=== PATIENT | female | born 1960 | race Caucasian/White ===

== ENCOUNTER 2016-10-14 00:30 | Emergency (ER) | payer MEDICAID ==
[2016-10-14 03:30] VITALS: BP 132/78
== END 2016-10-14 03:30 | disposition home or self-care (01) ==
LOC: ED 00:30
DX: K59.00 Constipation, unspecified (principal)

== ENCOUNTER 2019-02-08 12:08 | Emergency (ER) | payer MEDICAID ==
[~2019-02-08] VITALS: Ht 175.3 cm; Wt 52.6 kg
[2019-02-08 12:41] VITALS: Ht 175.3 cm; Wt 52.6 kg
[2019-02-08 16:00] LABS: BASOPHIL % 0.3 % (0-2); PLATELET COUNT 228 x10^3mcL (130-400); RED CELL DISTRIBUTION WIDTH 13.6 % (11.5-14.5)
[2019-02-08 16:04] LABS: CALCIUM 9.3 mg/dL (8.5-10.1); CARBON DIOXIDE 30.1 mmol/L (21-32); CHLORIDE SERUM 104 mmol/L (98-107); CREATININE SERUM 0.7 mg/dL (0.6-1.0); GFR1 > 60 mL/min; GLUCOSE SERUM 93 mg/dL (74-106); POTASSIUM SERUM 4.7 mmol/L (3.5-5.1); SODIUM SERUM 142 mmol/L (136-145)
[2019-02-08 16:08] LABS: ALBUMIN 3.9 g/dL (3.4-5.0); ALKALINE PHOSPHATASE 85 U/L (46-116); ALT/SGPT 42 U/L (14-59); AST/SGOT 31 U/L (15-37); BILIRUBIN TOTAL 0.4 mg/dL (0.20-1.00); TOTAL PROTEIN, SERUM 7.4 g/dL (6.4-8.2)
[2019-02-08 16:42] VITALS: BP 114/85
[2019-02-08 17:32] LABS: ERYTHROCYTE SED RATE 14 mm/hr (0-30)
== END 2019-02-08 16:42 | disposition home or self-care (01) ==
LOC: ED 12:08
PROVIDERS: Emergency Medicine
DX: S91.331D Puncture wound without foreign body, right foot, subsequent encounter (principal); L03.115 Cellulitis of right lower limb; W55.01XD Bitten by cat, subsequent encounter
CPT/HCPCS: 36415; J0696

== ENCOUNTER 2019-09-08 05:25 | Emergency (ER) | payer MEDICAID ==
[~2019-09-08] VITALS: Ht 177.8 cm; Wt 54.0 kg
[2019-09-08 05:33] VITALS: BP 140/79; Ht 177.8 cm; Wt 54.0 kg
[2019-09-08 06:53] LABS: CALCIUM 9.5 mg/dL (8.5-10.1); CARBON DIOXIDE 31.8 mmol/L (21-32); CHLORIDE SERUM 104 mmol/L (98-107); CREATININE SERUM 0.7 mg/dL (0.6-1.0); GFR1 > 60 mL/min; GLUCOSE SERUM 101 mg/dL (74-106); POTASSIUM SERUM 4.7 mmol/L (3.5-5.1); SODIUM SERUM 139 mmol/L (136-145)
== END 2019-09-08 07:55 | disposition home or self-care (01) ==
LOC: ED 05:25
PROVIDERS: Emergency Medicine
DX: M72.2 Plantar fascial fibromatosis (principal)
CPT/HCPCS: 36415; Q0092